=== PATIENT | female | born 1990 | race Caucasian/White ===

== ENCOUNTER 2019-12-27 00:02 | Emergency (ER) | payer OTHER ==
[~2019-12-27] VITALS: Ht 165.1 cm; Wt 124.6 kg
--- NOTE | 2019-12-27 00:14 | NUR ---
EKG DONE IN TRIAGE
[2019-12-27] MEDS ORDERED: LIDOCAINE-MPF 1%, 5ML ONE (00:43)
[2019-12-27] MEDS ORDERED: LIDOCAINE 1%-EPI 1:100K, 20ML SQ ONE (01:00)
[2019-12-27] MEDS ORDERED: KETOROLAC 30 MG/1 ML ONE (01:03)
[2019-12-27] MEDS ORDERED: L.E.T SOLUTION TP ONE ×2 (01:04→01:30)
[2019-12-27] MEDS ORDERED: KETOROLAC 30 MG/1 ML IM ONE (01:30)
[2019-12-27 01:37] VITALS: BP 128/81
[2019-12-27] MEDS ORDERED: NEOSPORIN OINT. PKT 1 PACKET ONE (01:38)
--- NOTE | 2019-12-27 02:02 | NUR ---
TECH AT BEDSIDE TO DRESS WOUND, PT READY FOR DC
== END 2019-12-27 02:05 | disposition home or self-care (01) ==
LOC: ED 02:00
DX: L73.2 Hidradenitis suppurativa (principal); R00.0 Tachycardia, unspecified; M79.622 Pain in left upper arm; R11.0 Nausea
CPT/HCPCS: 10060; 93005; 96372; 99283; J1885